=== PATIENT | male | born 1995 | race Caucasian/White ===

== ENCOUNTER 2019-03-16 17:51 | Emergency (ER) | payer BC ==
[2019-03-16] MEDS ORDERED: CLINDAMYCIN 600MG/50ML PREMIX 600 MG/50 ML BAG IVPB ONE (19:44)
--- NOTE | 2019-03-16 19:48 | Emergency Department Record ---
History of Present Illness - General Chief Complaint: Abdominal Pain Stated Complaint: ABD PAIN,VOMITTING Time Seen by Provider: 03/16/19 19:08 Source: Patient Mode of Arrival: Ambulatory Limitations: No limitations - History of Present Illness Initial Comments: The patient is her due to RUQ AP for 2 days. The pain is sharp and stabbing and located just under the ribs on the R. It is not better or worse with eating but sometimes worse with bending and twisting. The onset was with pulling a very heavy pallet at work. [facility] and had a neg Abd CT and Abd US. He also has had purulent drainage from his umbilicus for a month and was started on Doxycycline. The patient took the first dose of Doxycycline today and then vomited so he decided to come her for further evaluation. The patient's only abdominal surgery is an APPY 2 years ago. MD Complaint: Abdominal pain Onset/Timin -: Days(s) Radiation: RUQ Migration to: Periumbilical Severity: Moderate Severity scale (1-10): 6 Consistency: Constant Improves With: Nothing Worsens With: Nothing Context: Recent antibiotic use Associated Symptoms: Vomiting - Related Data Home Medications Medication Instructions Recorded Confirmed Last Taken Doxycycline Hyclate 100 mg PO BID 03/16/19 03/16/19 03/16/19 Previous Rx's Medication Instructions Recorded Clindamycin HCl [Cleocin HCl] 300 mg PO QID #28 capsule 03/16/19 Naproxen [Naprosyn] 500 mg PO BID #14 tablet. 03/16/19 Allergies Allergy/AdvReac Type Severity Reaction Status Date / Time No Known Drug Allergies Allergy Verified 03/16/19 19:13 Travel Screening - Travel/Exposure Within Last 30 Days Have you traveled within the last 30 days?: No - Travel Symptoms Symptom Screening: None Review of Systems Constitutional: Denies: Chills, Fever Eyes: Denies: Eye discharge ENT: Denies: Congestion Respiratory: Denies: Cough, Dyspnea Cardiovascular: Denies: Arrhythmia Past Medical History - SOCIAL HISTORY Smoking Status: Heavy tobacco smoker (>10/day) Alcohol Use: Rare Drug Use: Heavy Drug Use Detail:: Marijuana - RESPIRATORY Hx Respiratory Disorders: No - CARDIOVASCULAR Hx Cardio Disorders: No - NEURO Hx Neuro Disorders: No - GI Hx GI Disorders: No - Hx Genitourinary Disorders: No - ENDOCRINE Hx Endocrine Disorders: No - MUSCULOSKELETAL Hx Musculoskeletal Disorders: No - HEMATOLOGY/ONCOLOGY Hx Hematology/Oncology Disorders: No Family Medical History Any Significant Family History?: Yes Hx Heart Disease: Grandparents Hx Stroke: Grandparents Physical Exam - General General Appearance: Alert, Oriented x3, Cooperative, No acute distress - Head Head exam: Atraumatic, Normocephalic - Eye Eye exam: Normal appearance - Neck Neck exam: Normal inspection, Full ROM. negative: Tenderness - Respiratory Respiratory exam: Normal lung sounds bilaterally. negative: Respiratory distress - Cardiovascular Cardiovascular Exam: Regular rate, Normal rhythm, Normal heart sounds - GI/Abdominal GI/Abdominal exam: Soft, Normal bowel sounds, Tenderness (There is significant RUQ tenderness to palpation at the R lower rib area. There is no swelling or bruising appreciated.), Other (The patient's umbilicus has thin purulent drainage coming from the area with very mild tenderness. There is no surrounding erythema. ). negative: Distended, Guarding, Rebound, Rigid - Extremities Extremities exam: Normal inspection, Full ROM, Normal capillary refill. negative: Tenderness Course Vital Signs 03/16/19 19:06 Temperature 98.3 F Pulse Rate [ 60 Pulse Ox Probe] Respiratory 20 Rate Blood Pressure 134/74 [Left Arm] Pulse Ox 100 - Reevaluation(s) Reevaluation #1: I did review the patient's CT and US from 2 days ago that were both normal. I do believe the RUQ pain is mainly over the lower ribs and is due to pulled muscles from his heavy lifting. We will change the patient's Abx and have him F/U with his PCP for further evaluation and treatment. 03/16/19 20:41 Medical Decision Making - Data Complexity MDM Data: Labs Ordered and/or Reviewed - Lab Data Result diagrams: 03/16/19 19:55 03/16/19 19:55 Disposition Disposition: Discharge Clinical Impression: Strain of chest wall Qualifiers: Encounter type: initial encounter Qualified Code(s): S29.011A - Strain of muscle and tendon of front wall of thorax, initial encounter Disposition: Home, Self-Care Condition: (2) Stable Instructions: Chest Wall Pain (ED) Additional Instructions: Please stop the Doxycycline and start the Clindamycin. Please take Naprosyn for pain and please see your family doctor in 2-3 days for recheck. Please keep the belly button clean daily. Return to the ER for any worsening symptoms. Prescriptions: Clindamycin HCl [Cleocin HCl] 300 mg PO QID #28 capsule Naproxen [Naprosyn] 500 mg PO BID #14 tablet.dr Forms: Patient Portal Access Time of Disposition: 20:45 Quality - Quality Measures Quality Measures: N/A - Blood Pressure Screening View Details: Yes Does Patient Have Any of the Following: No Blood Pressure Classification: Pre-Hypertensive BP Reading Systolic Measurement: 134 Diastolic Measurement: 74 Screening for High Blood Pressure: < Pre-Hypertensive BP, F/U Documented > [[id number]] Pre-Hypertensive Follow-up Interventions: Referral to alternative/primary care provider.
[2019-03-16 20:07] LABS: ABSOLUTE NEUTROPHIL COUNT 6.35; BASO % 0.1 % (0-6); EOS % 0.7 % (0-6); GRAN % 84.1 % (47-80); HEMATOCRIT 46.5 % (42.0-52.0); HEMOGLOBIN 15.7 gm/dl (14.0-18.0); LYMPH % 10.3 % (16-45); MEAN CELL VOLUME 85.5 fl (81-97); MEAN CORPUSCULAR HEMOGLOBIN 28.9 pg (27-33); MEAN CORPUSCULAR HGB CONC 33.8 g/dl (32-36); MEAN PLATELET VOLUME 9.3 fl (7.4-10.4); MONO % 4.8 % (0-9); PLATELET COUNT 247 K/uL (130-400); RED BLOOD COUNT 5.44 M/uL (4.40-5.70); RED CELL DISTRIBUTION WIDTH 13.3 % (11.5-14.5); WHITE BLOOD COUNT W/O DIFF 7.6 K/uL (4.2-12.2)
[2019-03-16 20:09] LABS: URINE APPEARANCE CLEAR; URINE BILIRUBIN NEGATIVE (NEGATIVE); URINE BLOOD NEGATIVE (NEGATIVE); URINE COLOR YELLOW; URINE GLUCOSE (UA) NEGATIVE (NEGATIVE); URINE KETONE TRACE (NEGATIVE); URINE LEUKOCYTE ESTERASE NEGATIVE (NEGATIVE); URINE NITRITE NEGATIVE (NEGATIVE); URINE PROTEIN NEGATIVE (NEGATIVE); URINE UROBILINOGEN 0.2 E.U./dL (0.20 - 1.00)
[2019-03-16 20:22] LABS: BLOOD UREA NITROGEN 10 mg/dL (6-20); CREATININE 0.6 mg/dL (0.7-1.2); EST GLOMERULAR FILTRATION RATE > 60 mL/min
[2019-03-16 20:23] LABS: LIPASE 10 U/L (13-60); TOTAL PROTEIN 7.5 g/dL (6.6-8.7)
[2019-03-16 20:25] LABS: GLUCOSE,RANDOM 92 mg/dL (74-109)
[2019-03-16 20:27] LABS: ALT/SGPT 13 U/L (<41)
[2019-03-16 20:28] LABS: ALBUMIN 4.9 g/dL (4.0-5.0); ALKALINE PHOSPHATASE 97 U/L (40-129); AST/SGOT 16 U/L (10.0-50.0)
[2019-03-16 20:32] LABS: BILIRUBIN,DIRECT < 0.2 mg/dL (0-0.3)
[2019-03-16] MEDS ORDERED: KETOROLAC 30 MG/ML VIAL IVP ONE (20:40)
== END 2019-03-16 20:58 | disposition home or self-care (01) ==
LOC: ER 17:51
DX: S29.011A Strain of muscle and tendon of front wall of thorax, initial encounter (principal); R11.11 Vomiting without nausea; F17.210 Nicotine dependence, cigarettes, uncomplicated; X50.0XXA Overexertion from strenuous movement or load, initial encounter; Y99.0 Civilian activity done for income or pay
CPT/HCPCS: 80048; 80076; 81003; 83690; 85025; 96365; 96375; 99284; J1885